=== PATIENT | female | born 1965 | race Caucasian/White ===

== ENCOUNTER 2019-12-13 17:20 | Emergency (ER) | payer BC, OTHER ==
[2019-12-13 17:59] VITALS: TEMP 98.6; BMI 26.5
[2019-12-13] MEDS ORDERED: chlordiazePOXIDE HCL 25 MG CAPSULE PO ONE (18:01)
[2019-12-13] MEDS ORDERED: chlordiazePOXIDE HCL 25 MG CAPSULE ONE (18:15)
[2019-12-13 18:55] LABS: BASO % 0.6 % (0-2.0); EOS % 1.8 % (0-4.5); HEMATOCRIT 42.4 % (32.4-45.2); HEMOGLOBIN 14.8 GM/dl (10.7-15.3); LYMPH % 31.9 % (8-40); MCH 32.9 pg (25.7-33.7); MEAN CELL VOLUME 94.1 fl (80-96); MONO % 11.2 % (3.8-10.2); NEUT % 54.5 % (42.8-82.8); PLATELET COUNT 241 K/MM3 (134-434); RDW 12.2 % (11.6-15.6)
[2019-12-13 19:00] LABS: ALBUMIN 4.4 g/dl (3.4-5.0); BILIRUBIN,TOTAL 1.8 mg/dl (0.2-1); CALCIUM 9.7 mg/dl (8.5-10); CREATININE 0.5 mg/dl (0.55-1.3); POTASSIUM 4.1 mmol/L (3.5-5.1); TOT PROT 8.1 g/dl (6.4-8.2)
[2019-12-13 19:14] VITALS: BP 154/104; PULSE 82
--- NOTE | 2019-12-14 09:41 | EKG ---
Test Reason : Blood Pressure : / mmHG Vent. Rate : 091 BPM Atrial Rate : 091 BPM P-R Int : 128 ms QRS Dur : 078 ms QT Int : 358 ms P-R-T Axes : 043 008 022 degrees QTc Int : 440 ms NORMAL SINUS RHYTHM POSSIBLE LEFT ATRIAL ENLARGEMENT BORDERLINE ECG NO PREVIOUS ECGS AVAILABLE Confirmed by Gavin Aponte ([id number]) on 12/14/2019 9:40:55 AM Referred By: DR CABRERA Confirmed By:Gavin Aponte
--- NOTE | 2019-12-17 07:23 | PDOC ---
Documentation entered by Essence Marie SCRIBE, acting as scribe for Miriam Sky MD. Miriam Sky MD: This documentation has been prepared by the leaibFrank eubanks Lincy, SCRIBE, under my direction and personally reviewed by me in its entirety. I confirm that the documentation accurately reflects all work, treatment, procedures, and medical decision making performed by me. History of Present Illness - General Chief Complaint: Blood Pressure Problem Stated Complaint: HIGH BLOOD PRESSURE Time Seen by Provider: 12/13/19 17:49 History Source: Patient Exam Limitations: No Limitations - History of Present Illness Initial Comments: 12/13/19 18:27 The patient is a 54-year-old female with a past medical history significant for ankylosing spondylitis who presents to the emergency department with elevated blood pressure. The patient reports she was aggravated by her son, followed by an onset of a headache. The patient reports she checked her blood pressure, which was noted to be elevated. Denies headache currently. Denies a history of HTN. The patient reports on she felt slightly feverish, associated with nausea and a headache, which resolved the same day. The patient reports the use of alcohol, last alcohol use was Saturday states she had 4 glasses of wine. Denies nausea or vomiting Allergies: FREIDA PCP: Dr. Samantha Harrison Service Administrator: Dr. Yazmin Younger. Past History - Medical History Allergies/Adverse Reactions: Allergies Allergy/AdvReac Type Severity Reaction Status Date / Time No Known Allergies Allergy Verified 04/08/13 00:00 Home Medications: Ambulatory Orders Adalimumab [Humira] 40 mg SQ 04/08/13 Celecoxib [Celebrex] 200 mg PO 04/08/13 Sulfadiazine 1,000 mg PO 04/08/13 - Immunization History Td Vaccination: Yes - Psycho-Social/Smoking History Smoking Status: Yes Smoking History: Current some day smoker Number of Cigarettes Smoked Daily: 2 Review of Systems - Review of Systems Able to Perform ROS?: Yes Comments:: 12/13/19 18:28 GENERAL/CONSTITUTIONAL: +elevated blood pressure. No fever or chills. No weakness. HEAD, EYES, EARS, NOSE AND THROAT: No change in vision. No ear pain or discharge. No sore throat. CARDIOVASCULAR: No chest pain or shortness of breath. RESPIRATORY: No cough, wheezing, or hemoptysis. GASTROINTESTINAL: No nausea, vomiting, diarrhea or constipation. GENITOURINARY: No dysuria, frequency, or change in urination. MUSCULOSKELETAL: No joint or muscle swelling or pain. No neck or back pain. SKIN: No rash NEUROLOGIC: No headache currently, vertigo, loss of consciousness, or change in strength/sensation. ENDOCRINE: No increased thirst. No abnormal weight change. HEMATOLOGIC/LYMPHATIC: No anemia, easy bleeding, or history of blood clots. ALLERGIC/IMMUNOLOGIC: No hives or skin allergy. *Physical Exam - Physical Exam 12/13/19 18:30 GENERAL: Awake, alert, and fully oriented, in no acute distress HEAD: No signs of trauma EYES: PERRLA, EOMI, sclera anicteric, conjunctiva clear ENT: +tongue fasciculation. Auricles normal inspection, hearing grossly normal, nares patent, oropharynx clear without exudates. Moist mucosa NECK: Normal ROM, supple, no lymphadenopathy, JVD, or masses LUNGS: Breath sounds equal, clear to auscultation bilaterally. HEART: Regular rate and rhythm. ABDOMEN: Soft, nontender. No guarding, no rebound. No masses EXTREMITIES: Normal range of motion, no leg edema. NEUROLOGICAL: +tongue fasciculation. Cranial nerves II through XII grossly intact. Normal speech, normal gait SKIN: Warm, Dry, normal turgor, no rashes or lesions noted. ED Treatment Course - LABORATORY CBC & Chemistry Diagram: 12/13/19 18:25 12/13/19 18:25 Medical Decision Making - Medical Decision Making 12/13/19 19:05 Pt presents to the Ed with anxiety and a generalized feeling of malaise. Complained of a headache earlier today that has now completely resolved. Steven duran denies a prior history of HTN. Also has a history of chronic daily heavy ETOH use, exam is consistent with mild ETOH withdrawal. Differential diagnosis includes essential HTN, ETOH withdrawal. Renal function and troponin checked to rule out HTN emergency and are normal. Will reassess vital signs and consider discharge home. 12/13/19 19:08 Discharge - Discharge Information Problems reviewed: Yes Clinical Impression/Diagnosis: Hypertension Qualifiers: Hypertension type: unspecified Qualified Code(s): I10 - Essential (primary) hypertension Condition: Good Disposition: HOME - Admission No - Follow up/Referral Referrals: Samantha Harrison [Primary Care Provider] - - Patient Discharge Instructions Patient Printed Discharge Instructions: DI for High Blood Pressure Additional Instructions: You came to the ED for high blood pressure. This may have been caused by withdrawal from alcohol, or you may be developing HTN. you should call your doctor tomorrow for follow up. You should return to the ED for worsening symptoms, especially severe nausea and vomiting, severe chest pain, severe shortness of breath, severe headache. Try to gradually cut down on your drinking. - Post Discharge Activity
== END 2019-12-13 19:21 | disposition home or self-care (01) ==
LOC: FER 17:20
DX: I10 Essential (primary) hypertension (principal)
CPT/HCPCS: 36415; 80053; 82550; 84484; 85025; 93005; 99285-25